=== PATIENT | female | born 1955 | race African-American/Black ===

== ENCOUNTER → 2017-02-02 | Outpatient (CLI) | payer OTHER ==
[~2017-02-02] MED LIST: CODE30TA2 PO; HYDR-3583 PO; LISI10TA PO; WALKER/ADULT/FO1 MIS; XARE10TA PO
== END ==
LOC: CPRE 08:52
PROVIDERS: ATTEND Orthopaedic Surgery Orthopaedic Trauma
DX: M79.609 Pain in unspecified limb (principal)

== ENCOUNTER 2017-02-12 05:22 | Inpatient (IN) | payer OTHER ==
[~2017-02-12] VITALS: Ht 172.7 cm; Wt 84.6 kg
[~2017-02-12 05:22] MED LIST changes: -HYDR-3583 PO; -LISI10TA PO; -WALKER/ADULT/FO1 MIS; -XARE10TA PO
[2017-02-12] MEDS ORDERED: INSULIN HUMAN REGULAR 1,000 UNITS/10 ML VIAL SQ PRN (06:00)
[2017-02-12] MEDS ORDERED: CHLORHEXIDINE GLUCONATE 2 % 1 PACK (2 CLOTHS) TOPICAL PRN (06:00)
[2017-02-12] MEDS ORDERED: METOPROLOL TARTRATE 25 MG TAB PO PRN (06:00)
[2017-02-12] MEDS ORDERED: ceFAZolin 2 GM PREMIX 50 ML IV SCH (06:00)
[2017-02-12] MEDS ORDERED: CHLORHEXIDINE GLUCONATE 4% SOLN 120 ML BTL TOPICAL SCH (06:00)
[2017-02-12] MEDS ORDERED: LACTATED RINGER'S 1000 ML IV PRN (06:00)
[2017-02-12] MEDS ORDERED: POVIDONE IODINE 5% (ANTISEPSIS KIT) 4 APPLICATIONS EACH NARE PRN (06:00)
[2017-02-12] MEDS ORDERED: SODIUM CHLORID 0.9% 500 ML IV PRN (06:00)
[2017-02-12] MEDS ORDERED: VANCOMYCIN 1000 MG/NS 250 ML (for <70 kg) IV SCH ×2 (06:00)
[2017-02-12] MEDS ORDERED: LISI10TA PO (06:03)
[2017-02-12] MEDS ORDERED: GENTAMICIN SULFATE 80 MG/2 ML VIAL ONE (06:22)
[2017-02-12] MEDS ORDERED: FAMOTIDINE 20 MG/2 ML VIAL ONE (06:24)
[2017-02-12] MEDS ORDERED: ACETAMINOPHEN 1000 MG/100 ML 100 ML IV ONE (06:24)
[2017-02-12] MEDS ORDERED: SODIUM CHLORIDE 0.9% IV SCH (07:00)
[2017-02-12] MEDS ORDERED: EXPAREL PERI-ARTICULAR INJECTION (TOTAL VOL. 60 ML) P-ARTICULR SCH ×2 (07:00)
[2017-02-12] MEDS ORDERED: TRANEXAMIC ACID IV SCH (07:00)
[2017-02-12] MEDS ORDERED: XARE10TA PO (07:25)
[2017-02-12] MEDS ORDERED: WALKER/ADULT/FO1 MIS (07:25)
[2017-02-12] MEDS ORDERED: HYDR-3583 PO (07:25)
[2017-02-12] MEDS: LACTATED RINGER'S 1000 ML INJ 1,000 ML IV SCH ×2 (08:48→21:18)
--- NOTE | 2017-02-12 08:52 | PD.OP ---
cc: Alejandro Michael MD Operative Report Date of Surgery: Feb 12, 2017 Preoperative Diagnosis: Severe left hip osteoarthritis Postoperative Diagnosis: Procedure: Left total hip arthroplasty Surgeon: Alejandro Michael Head Setter(s): ROCIO Mae PA-C The surgical procedure was assisted by my physician physician's assistant. My P.A. presence was necessary throughout this case for the manipulation and positioning of the surgical extremity. My P.A. was assisting me throughout the duration of this procedure. The skill set of a physician physician's assistant was medically necessary to complete this procedure. During the surgical case the communication electronic technician was working at the back table and the physician physician's assistant was directly assisting me. Operation and Findings: PLAN OF ACTIVITY Weight bear as tolerated. DRAINS: 7-mm NATHAN drain. IMPLANTS USED DePuy Corail size [15] collared stem with a size [50] [place] Gription cup, [50 /32] Altrx poly liner, and a [32+5] ceramic Biolox ceramic head. DETAILS OF PROCEDURE: This patient has a long history of hip pain. Patient was found to have severe osteoarthritis. The patient had radiographic evidence of joint space narrowing with [id number]-[id number] arthritis and osteophytes around the acetabulum as well as the femoral head. There was also some cystic changes. The patient failed conservative treatment with pain medications, anti-inflammatories, physical therapy, assistive devices including a cane, as well as therapeutic injection of the hip. Patient's hip arthritis was limiting his ability to ambulate and perform activities of daily living. The patient wished to proceed with surgery and informed consent was obtained. Operative site was marked. I discussed both posterior approach and anterior approach with the patient and decision was made for anterior approach. Patient was brought to OR and placed on OR table. IV sedation and general anesthesia was administered by anesthesiologist. Patient positioned on a Nasrin table and was given IV antibiotics. Time-out procedure was performed. The hip and thigh were prepped with alcohol followed by Hibiclens. The thigh was draped in the usual sterile fashion. Clean Air Suite was used for this procedure. The procedure began with a 5-inch incision over the anterolateral thigh. Subcutaneous tissue was dissected with Bovie. The fascia over the tensa fasciae latae was incised. Care was taken to avoid injury to the lateral femoral cutaneous nerve. The tensor muscle was retracted laterally. Sartorius was retracted medially. Retractors were now placed. The reflected head of the rectus is now elevated. A capsulotomy was performed over the anterior head capsule. Sutures were placed to help retract the capsule. At this point the femoral head and neck were identified. With soft tissue protected, oscillating saw was used to make a cut through the femoral neck, the femoral head was now removed. At this point attention was turned to preparation of the acetabulum. The labrum was excised. The acetabulum was sequentially reamed up to size [50]. A [place] cup was now placed. Fluoroscopy was used to aid in identification of appropriate version. Cup was fully impacted and found to have excellent fit. Hole eliminator was now placed. The liner was now impacted into the cup. At this point the hip was externally rotated. A hook was placed around the proximal femur. The capsule was released off the lateral and medial femur. The hip was now extended and adducted. Retractors were placed around the proximal femur to allow for exposure. A box osteotome was used to remove the lateral cortex of the femoral neck. A broach was used to help lateralize the prosthesis. Canal finder was used to create a path down the canal. Next, the canal was sequentially broached up to size [50]. This was found to be an excellent fit. Calcar planer was placed. A standard head was placed, and the hip was reduced. The hip was found to have excellent stability with good range of motion. The leg lengths were measured under fluoroscopy and found to be equal compared to preoperatively. Trial broach was removed. The Corail stem was opened. Stem was fully impacted into the proximal femur in appropriate version. The femoral head was placed. The hip was again reduced. Fluoroscopy confirmed excellent alignment of prosthesis. The wound was thoroughly irrigated and capsule was closed with #1 Vicryl. The fascia over the tensor fasciae muscle was closed with #1 Vicryl, subcutaneous tissue was closed with 3-0 Vicryl and the skin was closed with graham and Dermabond skin closure. The capsule layers, muscle, and subcutaneous tissue were injected with a mixture of saline and bupivicaine. Dressings were applied. The patient was transferred to Recovery Room in stable condition. Alejandro Michael MD Feb 12, 2017 08:52
[2017-02-12] MEDS ORDERED: ONDANSETRON HCL 4 MG/2 ML VIAL IVP PRN (09:00)
[2017-02-12] MEDS: SODIUM CHLORIDE 0.9% FLUSH 5 ML FLUSH IVF SCH ×2 (09:00→21:00)
[2017-02-12] MEDS ORDERED: NALOXONE HCL 0.4 MG/ML AMP IV PRN (09:00)
[2017-02-12] MEDS ORDERED: SODIUM CHLORIDE 0.9% FLUSH 5 ML FLUSH IVF PRN (09:00)
[2017-02-12] MEDS ORDERED: ACETAMINOPHEN/HYDROcodone 325 MG/7.5 MG TAB PO PRN (09:00)
--- NOTE | 2017-02-12 09:16 | RADRPT ---
EXAM DATE/TIME: 02/12/2017 08:27 [facility] COMPARISON: No previous studies available for comparison. INDICATIONS : Post-op total left hip arthroplasty. MEDICAL HISTORY : None. SURGICAL HISTORY : None. ENCOUNTER: Initial ACUITY: 1 day PAIN SCORE: Non-responsive. LOCATION: Left hip. FINDINGS: Left total hip arthroplasty is present. Hardware appears intact. Alignment is anatomic. CONCLUSION: Satisfactory post left JEISON Jose Luis Shafer MD on February 12, 2017 at 9:13 Board Certified Radiologist. This report was verified electronically.
[2017-02-12] MEDS ORDERED: Post-op Orders (for Pharmacy) MISC XX ONE (09:17)
[2017-02-12] MEDS ORDERED: DO NOT ADM ANY ANTICOAGULANT DRUGS PRN (09:17)
[2017-02-12] MEDS ORDERED: *morphine SULFATE 8 MG/ML PERIprocedure ONLY ONE ×3 (09:19→12:39)
[2017-02-12] MEDS ORDERED: *HYDROmorphone PF 1 MG VIAL PERIprocedural Use ONLY ONE ×2 (09:43→10:32)
[2017-02-12] MEDS: KETOROLAC TROMETHAMINE 30 MG/ML (IVP) VIAL IV PUSH SCH ×2 (10:00→22:54)
[2017-02-12] MEDS ORDERED: TRANEXAMIC ACID INJ 1,000 MG in SODIUM CHLORIDE 0.9% INJ 100 ML IV ONE (10:00)
--- NOTE | 2017-02-12 10:18 | RADRPT ---
EXAM DATE/TIME: 02/12/2017 09:30 [facility] COMPARISON: No previous studies available for comparison. INDICATIONS : Post hardware placement left hip MEDICAL HISTORY : Arthritis. SURGICAL HISTORY : ENCOUNTER: Subsequent ACUITY: 1 day PAIN SCORE: Non-responsive. LOCATION: Left Hip FINDINGS: Left total hip arthroplasty is present. Hardware is intact. Alignment is anatomic. The adjacent pelvi s is unremarkable. A surgical drain is noted. Skin graham are present laterally. Contralateral right hip is notable for severe arthritic change. CONCLUSION: Satisfactory postop appearance Jose Luis Shafer MD on February 12, 2017 at 10:15 Board Certified Radiologist. This report was verified electronically.
[2017-02-12] MEDS ORDERED: NEOSTIGMINE 3 MG/3 ML SYR IV ONE (12:00)
[2017-02-12] MEDS ORDERED: ROCURONIUM INJ 50 MG/5 ML SYRINGE IV PUSH ONE (12:00)
[2017-02-12] MEDS ORDERED: LIDOCAINE HCL 1% PF 5 ML AMPULE OTHER ONE (12:00)
[2017-02-12] MEDS ORDERED: ONDANSETRON HCL 4 MG/2 ML VIAL IV PUSH ONE (12:00)
[2017-02-12] MEDS ORDERED: PROPOFOL 200 MG/20 ML AMP IV ONE (12:00)
[2017-02-12] MEDS ORDERED: ESMOLOL HCL 100 MG/10 ML VIAL IV ONE (12:00)
[2017-02-12] MEDS ORDERED: MIDAZOLAM HCL 2 MG/2 ML VIAL IV ONE (12:00)
[2017-02-12] MEDS ORDERED: GLYCOPYRROLATE 1 MG/5 ML SYRINGE IV PUSH ONE (12:00)
[2017-02-12] MEDS ORDERED: DEXAMETHASONE SOD PHOS 4 MG/ML VIAL IV ONE (12:00)
[2017-02-12] MEDS: ceFAZolin 2 GM PREMIX 50 ML IV SCH ×2 (12:48→18:51)
[2017-02-12 17:05] VITALS: BP 125/71; PULSE 63; RESP 17; TEMP 96.8; O2SAT 100
[2017-02-12] MEDS: VANCOMYCIN INJ 1,000 MG in SODIUM CHLOR 0.9% 250 ML INJ 250 ML IV SCH (17:32)
[2017-02-12] MEDS: MORPHINE SULFATE 4 MG/ML INJ IV PUSH PRN (17:33)
[2017-02-12 17:57] VITALS: O2SAT 100
[2017-02-12 19:00] VITALS: BP 128/72; PULSE 67; RESP 17; TEMP 98.2; O2SAT 100
[2017-02-13] VITALS (8 sets, daily range): BP systolic 101–145; BP diastolic 55–85; PULSE 64–86; RESP 15–18; TEMP 96.4–98; O2SAT 96–100
[2017-02-13] MEDS: ceFAZolin 2 GM PREMIX 50 ML IV SCH (01:55)
[2017-02-13] MEDS: ACETAMINOPHEN/HYDROcodone 325 MG/10 MG TAB PO PRN ×5 (04:09→20:25)
[2017-02-13] MEDS: MORPHINE SULFATE 4 MG/ML INJ IV PUSH PRN ×3 (04:29→22:02)
[2017-02-13 05:50] LABS: HEMATOCRIT 30.8 % (35.0-46.0)
[2017-02-13] MEDS: VANCOMYCIN INJ 1,000 MG in SODIUM CHLOR 0.9% 250 ML INJ 250 ML IV SCH (05:51)
[2017-02-13 05:58] LABS: REVIEW FLAG FINAL
--- NOTE | 2017-02-13 06:45 | PD.ORT.PN ---
Subjective Subjective Remarks Resting with pain controlled. Was able to walk with assistance to bathroom back Objective Vitals Vital Signs Date Time Temp Pulse Resp B/P (MAP) Pulse Ox O2 Delivery O2 Flow Rate FiO2 02/13/17 04:00 97.4 70 17 143/76 (98) 100 02/13/17 00:00 97.6 69 15 101/56 (71) 98 02/12/17 19:00 98.2 67 17 128/72 (90) 100 02/12/17 17:57 100 Nasal Cannula 2.00 02/12/17 17:05 96.8 63 17 125/71 (89) 100 02/12/17 16:00 62 18 109/60 (76) 99 Room Air 02/12/17 14:00 59 19 112/65 (81) 96 Room Air 02/12/17 13:00 73 18 135/87 (103) 100 Room Air 02/12/17 12:00 98.0 70 13 129/60 (83) 99 Room Air 02/12/17 11:00 89 14 144/69 (94) 99 Room Air 02/12/17 11:00 14 02/12/17 10:30 68 13 146/68 (94) 98 Room Air 02/12/17 10:15 62 15 148/75 (99) 100 Room Air 02/12/17 10:00 62 20 124/67 (86) 100 Nasal Cannula 2 02/12/17 09:45 68 20 146/68 (94) 100 Nasal Cannula 2 02/12/17 09:30 68 23 128/60 (82) 100 Nasal Cannula 4 02/12/17 09:15 97.6 63 19 119/67 (84) 100 Nasal Cannula 4 I/O 02/12/17 02/12/17 02/12/17 02/13/17 02/13/17 02/13/17 07:00 15:00 23:00 07:00 15:00 23:00 Intake Total 1814 ml 730 ml 480 ml Output Total 715 ml Balance 1099 ml 730 ml 480 ml Intake Oral 480 ml 480 ml IV Total 414 ml 250 ml Other 1400 ml Output Urine Total 175 ml Drainage Total 140 ml Estimated Blood Loss 400 ml # Voids 1 3 3 # Bowel Movements 0 0 Result Diagram: 02/13/17 0516 Imaging Last 24 hours Impressions Hip and Pelvis X-Ray 02/12/17 0848 Signed Impressions: Service Date/Time: February 09:30 - CONCLUSION: Satisfactory postop appearance Jose Luis Shafer MD Objective Remarks Left lower extremity: Dressing with mild drainage from drain site. Incision dressing clean and dry. Mild swelling. Distally intact sensation with good capillary refills. Strong dorsiflexion and plantar flexion of foot. Assessment & Plan Assessment and Plan Left total hip arthroplasty due to avascular necrosis POD 1 Physical therapy weightbearing as tolerated twice a day Remove drain today after physical therapy and he daily dressing changes with dry dressings over incision and Xeroform over drain site. Do not use Steri- Strip over drain site Lovenox then convert to Xarelto after discharge Incentive spirometry Case management for rehabilitation placement on Thursday Follow-up appointment with Dr. Michael or PA in 2 weeks Adalid Light Jr. Feb 13, 2017 06:45
[2017-02-13] MEDS: ENOXAPARIN SODIUM 40 MG/0.4 ML SYRINGE SQ SCH (08:55)
[2017-02-13] MEDS: KETOROLAC TROMETHAMINE 30 MG/ML (IVP) VIAL IV PUSH SCH ×2 (09:44→20:26)
[2017-02-13] MEDS: SODIUM CHLORIDE 0.9% FLUSH 5 ML FLUSH IVF SCH ×2 (09:45→20:25)
[2017-02-13] MEDS: LACTATED RINGER'S 1000 ML INJ 1,000 ML IV SCH ×2 (09:45→20:26)
[2017-02-13] MEDS: DOCUSATE SODIUM 100 MG CAP PO SCH (20:24)
[2017-02-14] MEDS: ACETAMINOPHEN/HYDROcodone 325 MG/10 MG TAB PO PRN ×5 (05:36→23:28)
--- NOTE | 2017-02-14 06:51 | PD.ORT.PN ---
Subjective Subjective Remarks POd 2 s/p left anterior JEISON doing well. reports mild pain but out of bed with therapy. Objective Vitals Vital Signs Date Time Temp Pulse Resp B/P (MAP) Pulse Ox O2 Delivery O2 Flow Rate FiO2 02/13/17 23:32 98.0 70 17 106/61 (76) 96 02/13/17 19:20 96.4 86 18 145/85 (105) 99 02/13/17 16:00 97.2 70 18 102/63 (76) 100 02/13/17 12:00 97.8 66 18 108/61 (77) 96 02/13/17 10:22 96 Nasal Cannula 2.00 02/13/17 08:00 97.8 64 18 102/55 (71) 96 I/O 02/13/17 02/13/17 02/13/17 02/14/17 02/14/17 02/14/17 07:00 15:00 23:00 07:00 15:00 23:00 Intake Total 480 ml 970 ml 480 ml 720 ml Output Total 80 ml Balance 400 ml 970 ml 480 ml 720 ml Intake Oral 480 ml 720 ml 480 ml 720 ml IV Total 250 ml Drainage Total 80 ml # Voids 3 2 4 1 # Bowel Movements 0 0 1 0 Result Diagram: 02/13/17 0516 Imaging Last 24 hours Impressions Hip and Pelvis X-Ray 02/12/17 0848 Signed Impressions: Service Date/Time: February 09:30 - CONCLUSION: Satisfactory postop appearance Jose Luis Shafer MD Objective Remarks Left lower extremity: Dressing with mild drainage from drain site. Incision dressing clean and dry. Mild swelling. Distally intact sensation with good capillary refills. Strong dorsiflexion and plantar flexion of foot. Assessment & Plan Assessment and Plan 1) Left total hip arthroplasty due to avascular necrosis POD 2 Physical therapy weightbearing as tolerated twice a day Remove drain today after physical therapy and he daily dressing changes with dry dressings over incision and Xeroform over drain site. Do not use Steri- Strip over drain site Lovenox then convert to Xarelto after discharge Incentive spirometry Case management for rehabilitation placement on Thursday Follow-up appointment with Dr. Michael or PA in 2 weeks Armando Sampson Feb 14, 2017 06:50
[2017-02-14 08:00] VITALS: BP 137/69; PULSE 79; RESP 18; TEMP 97.9; O2SAT 100
[2017-02-14] MEDS: ENOXAPARIN SODIUM 40 MG/0.4 ML SYRINGE SQ SCH (08:55)
[2017-02-14] MEDS: DOCUSATE SODIUM 100 MG CAP PO SCH ×2 (08:55→19:53)
[2017-02-14] MEDS: SODIUM CHLORIDE 0.9% FLUSH 5 ML FLUSH IVF SCH ×2 (08:59→19:54)
[2017-02-14 09:49] VITALS: O2SAT 96
[2017-02-14] MEDS: LACTATED RINGER'S 1000 ML INJ 1,000 ML IV SCH ×2 (10:48→19:54)
[2017-02-14 12:00] VITALS: BP 112/74; PULSE 76; RESP 18; TEMP 97.9; O2SAT 100
[2017-02-14] MEDS: MORPHINE SULFATE 4 MG/ML INJ IV PUSH PRN ×2 (12:03→18:12)
[2017-02-14 16:00] VITALS: BP 136/81; PULSE 84; RESP 18; TEMP 98.9; O2SAT 95
[2017-02-14 20:15] VITALS: BP 105/67; PULSE 76; RESP 16; TEMP 99; O2SAT 97
[2017-02-14 23:25] VITALS: BP 140/71; PULSE 91; RESP 16; TEMP 98.1; O2SAT 99
[2017-02-15] MEDS: ACETAMINOPHEN/HYDROcodone 325 MG/10 MG TAB PO PRN ×4 (03:47→13:04)
[2017-02-15 04:35] VITALS: BP 127/74; PULSE 72; RESP 16; TEMP 97.2; O2SAT 100
--- NOTE | 2017-02-15 06:47 | PD.ORT.PN ---
Subjective Subjective Remarks POD 3 s/p left anterior JEISON doing well. reports mild pain but out of bed with therapy. improving Objective Vitals Vital Signs Date Time Temp Pulse Resp B/P (MAP) Pulse Ox O2 Delivery O2 Flow Rate FiO2 02/15/17 04:35 97.2 72 16 127/74 (91) 100 02/14/17 23:25 98.1 91 16 140/71 (94) 99 02/14/17 20:59 18 02/14/17 20:15 99.0 76 16 105/67 (80) 97 02/14/17 16:00 98.9 84 18 136/81 (99) 95 02/14/17 12:00 97.9 76 18 112/74 (87) 100 02/14/17 09:49 96 Nasal Cannula 2.00 02/14/17 08:00 97.9 79 18 137/69 (91) 100 I/O 02/14/17 02/14/17 02/14/17 02/15/17 02/15/17 02/15/17 07:00 15:00 23:00 07:00 15:00 23:00 Intake Total 720 ml 800 ml 720 ml 240 ml Balance 720 ml 800 ml 720 ml 240 ml Intake Oral 720 ml 800 ml 720 ml 240 ml # Voids 1 2 4 3 # Bowel Movements 0 0 1 0 Result Diagram: 02/13/17 0516 Imaging Last 24 hours Impressions Hip and Pelvis X-Ray 02/12/17 0848 Signed Impressions: Service Date/Time: February 09:30 - CONCLUSION: Satisfactory postop appearance Jose Luis Shafer MD Objective Remarks Left lower extremity: Dressing with mild drainage from drain site. Incision dressing clean and dry. Mild swelling. Distally intact sensation with good capillary refills. Strong dorsiflexion and plantar flexion of foot. Assessment & Plan Assessment and Plan 1) Left total hip arthroplasty due to avascular necrosis POD 3 Physical therapy weightbearing as tolerated twice a day Remove drain today after physical therapy and he daily dressing changes with dry dressings over incision and Xeroform over drain site. Do not use Steri- Strip over drain site Lovenox then convert to Xarelto after discharge Incentive spirometry Case management for rehabilitation placement on Thursday Follow-up appointment with Dr. Michael or PA in 2 weeks Armando Sampson Feb 15, 2017 06:47
--- NOTE | 2017-02-15 06:49 | HHI.DS ---
Discharge Summary Admission Date Feb 12, 2017 at 05:22 Discharge Date: Feb 15, 2017 Admitting Diagnosis Left hip osteoarthritis Diagnosis: (1) S/P total hip arthroplasty Diagnosis: Principal ICD Codes: Z96.649 - Presence of unspecified artificial hip joint Procedures Left anterior total hip arthroplasty CBC/BMP: 02/13/17 0516 Significant Findings Laboratory Tests Test 02/13/17 05:16 Hemoglobin 10.7 GM/DL (11.6-15.3) Hematocrit 30.8 % (35.0-46.0) PE at Discharge Left lower extremity: Dressing with mild drainage from drain site. Incision dressing clean and dry. Mild swelling. Distally intact sensation with good capillary refills. Strong dorsiflexion and plantar flexion of foot. Hospital Course Patient admitted from outpatient basis for elective left total hip arthroplasty. She tolerated the procedure well. She was admitted to [address] [place] [address]. She was out of bed on postoperative day 0. Her drain was discontinued on postop day 1 and daily dressing changes were initiated. She lives alone and is not fit for discharge home by herself. She will be set up for discharge to rehabilitation facility. By postoperative day 3 she was ambulatory with therapy , pain well controlled, hemodynamically stable, and fit for discharge to rehabilitation facility. She'll be discharged today in follow-up in the office Dr. Bhakta or his PA in 2 weeks. She'll remain fully weightbearing and have daily dressing changes of the incision. Pt Condition on Discharge: Good Discharge Disposition: Discharge to SNF Discharge Instructions Diet Instructions: As Tolerated, No Restrictions Activities You Can Perform: Full Weight Bearing Activities to Avoid: Shower Follow up Referrals: Orthopedics - 2 Weeks @ [facility] with Alejandro Bhakta MD New Medications: Hydrocodone-Acetaminophen (Hydrocodone-Acetaminophen) 10-325 mg Tab 1 TAB PO Q4H PRN for PAIN, #60 TAB 0 Refills Rivaroxaban (Xarelto) 10 Mg Tab 10 MG PO DAILY for Blood Clot Prevention, #14 TAB 0 Refills Walker/Adult/Folding (Walker/Adult/Folding) 1 Mis Mis EA .ROUTE DIRECTED, #1 0 Refills Continued Medications: Lisinopril-Hctz (Lisinopril-Hctz) 10-12.5 Mg Tab 1 TAB PO DAILY for Blood Pressure Management, #30 TAB 0 Refills Discontinued Medications: Codeine-Acetaminophen (Codeine-Acetaminophen) 30-300 mg Tab 1 TAB PO Q4H PRN for PAIN, TAB 0 Refills Armando Sampson Feb 15, 2017 06:49
[2017-02-15 07:33] VITALS: BP 143/86; PULSE 74; RESP 16; TEMP 98.2; O2SAT 98
[2017-02-15] MEDS: SODIUM CHLORIDE 0.9% FLUSH 5 ML FLUSH IVF SCH (09:00)
[2017-02-15] MEDS: ENOXAPARIN SODIUM 40 MG/0.4 ML SYRINGE SQ SCH (09:13)
[2017-02-15] MEDS: DOCUSATE SODIUM 100 MG CAP PO SCH (09:13)
[2017-02-15] MEDS: LACTATED RINGER'S 1000 ML INJ 1,000 ML IV SCH (11:48)
[2017-02-15 11:57] VITALS: BP 122/74; PULSE 72; RESP 16; TEMP 98.2; O2SAT 100
[2017-02-15 15:34] VITALS: BP 116/69; PULSE 77; RESP 16; TEMP 98.3; O2SAT 100
== END 2017-02-15 18:48 | DRG 470 ==
LOC: HSDI 05:22 → N06B 16:28
PROVIDERS: ADMIT Orthopaedic Surgery Orthopaedic Trauma; ATTEND Orthopaedic Surgery Orthopaedic Trauma
PROC: 0SRB04Z Replacement of Left Hip Joint with Ceramic on Polyethylene Synthetic Substitute, Open Approach (ICD-10-PCS; principal; 2017-02-12 06:40)
DX: M16.12 Unilateral primary osteoarthritis, left hip (principal); M87.852 Other osteonecrosis, left femur; I10 Essential (primary) hypertension; M25.752 Osteophyte, left hip
CPT/HCPCS: 73501; 73502; 76000; 85014; 85018; 86850; 86900; 86901; C1776; C9290; J0131; J0690; J1100; J1170; J1580; J1650; J1885; J2250; J2270; J2405; J2710; J3010; J3370; J7050; J7120

== ENCOUNTER 2017-06-11 07:00 | Inpatient (IN) | payer OTHER ==
[~2017-06-11] VITALS: Ht 172.7 cm; Wt 85.6 kg
[~2017-06-11 07:00] MED LIST changes: -CODE30TA2 PO; +HYDR-3583 PO; +LISI10TA PO; +WALKER/ADULT/FO1 MIS
[2017-07-14] MEDS ORDERED: SODIUM CHLORID 0.9% 500 ML IV PRN (06:00)
[2017-07-14] MEDS ORDERED: POVIDONE IODINE 5% (ANTISEPSIS KIT) 4 APPLICATIONS EACH NARE PRN (06:00)
[2017-07-14] MEDS ORDERED: CELECOXIB 200 MG CAP PO ONE (06:00)
[2017-07-14] MEDS ORDERED: METOPROLOL TARTRATE 25 MG TAB PO PRN (06:00)
[2017-07-14] MEDS ORDERED: LACTATED RINGER'S 1000 ML IV PRN (06:00)
[2017-07-14] MEDS ORDERED: CHLORHEXIDINE GLUCONATE 4% SOLN 120 ML BTL TOPICAL SCH (06:00)
[2017-07-14] MEDS ORDERED: CHLORHEXIDINE GLUCONATE 2 % 1 PACK (2 CLOTHS) TOPICAL PRN (06:00)
[2017-07-14] MEDS ORDERED: ceFAZolin 2 GM PREMIX 50 ML IV SCH (06:00)
[2017-07-14] MEDS ORDERED: VANCOMYCIN 1000 MG/NS 250 ML (for <70 kg) IV SCH ×2 (06:00)
[2017-07-14] MEDS ORDERED: DEXAMETHASONE SOD PHOS 20 MG/5 ML VIAL IV ONE (06:00)
[2017-07-14] MEDS ORDERED: GENTAMICIN SULFATE 80 MG/2 ML VIAL ONE ×2 (06:04→06:15)
[2017-07-14] MEDS ORDERED: BUPIVACAINE/EPINEPHRINE 0.25% 50 ML VIAL ONE (06:04)
[2017-07-14] MEDS ORDERED: TRANEXAMIC ACID IV SCH (07:00)
[2017-07-14] MEDS ORDERED: EXPAREL PERI-ARTICULAR INJECTION (TOTAL VOL. 60 ML) P-ARTICULR SCH ×2 (07:00)
[2017-07-14] MEDS ORDERED: SODIUM CHLORIDE 0.9% IV SCH (07:00)
[2017-07-14] MEDS ORDERED: ACETAMINOPHEN 1000 MG/100 ML 100 ML IV ONE (07:51)
[2017-07-14] MEDS ORDERED: HYDROmorphone HCL PF 2 MG/ML VIAL ONE ×4 (07:52→10:16)
[2017-07-14] MEDS ORDERED: ASPI1CHW4 CHEW (08:25)
[2017-07-14] MEDS ORDERED: HYDR-3583 PO (08:25)
--- NOTE | 2017-07-14 08:40 | PD.OP ---
cc: Alejandro Michael MD Operative Report Date of Surgery: Jul 14, 2017 Preoperative Diagnosis: Severe right hip osteoarthritis Postoperative Diagnosis: Procedure: Right total hip arthroplasty via anterior approach Anesthesia: Gen. Surgeon: Alejandro Michael Compound Specialist(s): ROCIO Mae PA-C The surgical procedure was assisted by my physician instructional assistant. My P.A. presence was necessary throughout this case for the manipulation and positioning of the surgical extremity. My P.A. was assisting me throughout the duration of this procedure. The skill set of a physician instructional assistant was medically necessary to complete this procedure. During the surgical case the surgical garment fitter was working at the back table and the physician instructional assistant was directly assisting me. Operation and Findings: PLAN OF ACTIVITY Weight bear as tolerated. DRAINS: 7-mm NATHAN drain. IMPLANTS USED DePuy Corail size [14] collared stem with a size [52] [place] Gription cup, [52 /32] Altrx poly liner, and a [36+1] ceramic Biolox ceramic head. DETAILS OF PROCEDURE: This patient has a long history of hip pain. Patient was found to have severe osteoarthritis. The patient had radiographic evidence of joint space narrowing with qvef-wk-grok arthritis and osteophytes around the acetabulum as well as the femoral head. There was also some cystic changes. The patient failed conservative treatment with pain medications, anti-inflammatories, physical therapy, assistive devices including a cane, as well as therapeutic injection of the hip. Patient's hip arthritis was limiting his ability to ambulate and perform activities of daily living. The patient wished to proceed with surgery and informed consent was obtained. Operative site was marked. I discussed both posterior approach and anterior approach with the patient and decision was made for anterior approach. Patient was brought to OR and placed on OR table. IV sedation and general anesthesia was administered by anesthesiologist. Patient positioned on a Nasrin table and was given IV antibiotics. Time-out procedure was performed. The hip and thigh were prepped with alcohol followed by Hibiclens. The thigh was draped in the usual sterile fashion. Clean Air Suite was used for this procedure. The procedure began with a 5-inch incision over the anterolateral thigh. Subcutaneous tissue was dissected with Bovie. The fascia over the tensa fasciae latae was incised. Care was taken to avoid injury to the lateral femoral cutaneous nerve. The tensor muscle was retracted laterally. Sartorius was retracted medially. Retractors were now placed. The reflected head of the rectus is now elevated. A capsulotomy was performed over the anterior head capsule. Sutures were placed to help retract the capsule. At this point the femoral head and neck were identified. With soft tissue protected, oscillating saw was used to make a cut through the femoral neck, the femoral head was now removed. At this point attention was turned to preparation of the acetabulum. The labrum was excised. The acetabulum was sequentially reamed up to size [52]. A [place] cup was now placed. Fluoroscopy was used to aid in identification of appropriate version. Cup was fully impacted and found to have excellent fit. Hole eliminator was now placed. The liner was now impacted into the cup. At this point the hip was externally rotated. A hook was placed around the proximal femur. The capsule was released off the lateral and medial femur. The hip was now extended and adducted. Retractors were placed around the proximal femur to allow for exposure. A box osteotome was used to remove the lateral cortex of the femoral neck. A broach was used to help lateralize the prosthesis. Canal finder was used to create a path down the canal. Next, the canal was sequentially broached up to size [14]. This was found to be an excellent fit. Calcar planer was placed. A standard head was placed, and the hip was reduced. The hip was found to have excellent stability with good range of motion. The leg lengths were measured under fluoroscopy and found to be equal compared to preoperatively. Trial broach was removed. The [place]ail stem was opened. Stem was fully impacted into the proximal femur in appropriate version. The femoral head was placed. The hip was again reduced. Fluoroscopy confirmed excellent alignment of prosthesis. The wound was thoroughly irrigated and capsule was closed with #1 Vicryl. The fascia over the tensor fasciae muscle was closed with #1 Vicryl, subcutaneous tissue was closed with 3-0 Vicryl and the skin was closed with graham and Dermabond skin closure. The capsule layers, muscle, and subcutaneous tissue were injected with a mixture of saline and bupivicaine. Dressings were applied. The patient was transferred to Recovery Room in stable condition. Alejandro Michael MD Jul 14, 2017 08:40
[2017-07-14] MEDS ORDERED: Post-op Orders (for Pharmacy) XX ONE (08:45)
[2017-07-14] MEDS ORDERED: ACETAMINOPHEN/HYDROcodone 325 MG/7.5 MG TAB PO PRN (08:45)
[2017-07-14] MEDS ORDERED: ONDANSETRON HCL 4 MG/2 ML VIAL IVP PRN (08:45)
[2017-07-14] MEDS ORDERED: NALOXONE HCL 0.4 MG/ML AMP IV PUSH PRN (08:45)
[2017-07-14] MEDS ORDERED: *morphine SULFATE 8 MG/ML PERIprocedure ONLY ONE ×2 (09:10→09:21)
[2017-07-14] MEDS ORDERED: DO NOT ADM ANY ANTICOAGULANT DRUGS PRN (09:30)
[2017-07-14] MEDS: LACTATED RINGER'S 1000 ML INJ 1,000 ML IV SCH (09:30)
[2017-07-14] MEDS ORDERED: TRANEXAMIC ACID INJ 1,000 MG in SODIUM CHLORIDE 0.9% INJ 100 ML IV ONE (10:20)
--- NOTE | 2017-07-14 10:31 | RADRPT ---
EXAM DATE/TIME: 07/14/2017 09:16 [facility] COMPARISON: No previous studies available for comparison. INDICATIONS : Post-op right total hip replacement. MEDICAL HISTORY : Arthritis. SURGICAL HISTORY : Left total hip replacement. ENCOUNTER: Initial ACUITY: 1 day PAIN SCORE: Non-responsive. LOCATION: Right hip FINDINGS: Post surgical features of right hip arthroplasty. Arthroplasty components are in good position and in anatomic alignment. No significant acute bony fracture. Immediate postsurgical features in the right hip soft tissues. There is a left hip arthroplasty also in place. CONCLUSION: 1. Status post right hip arthroplasty in anatomic alignment without acute fracture. Osvaldo Reilly MD on July 14, 2017 at 10:29 Board Certified Radiologist. This report was verified electronically.
[2017-07-14] MEDS: KETOROLAC TROMETHAMINE 30 MG/ML (IVP) VIAL IV PUSH SCH ×2 (11:00→23:09)
[2017-07-14] MEDS: ASPIRIN 81 MG CHEW TAB CHEW SCH ×2 (11:16→19:58)
[2017-07-14] MEDS ORDERED: ONDANSETRON HCL 4 MG/2 ML VIAL IV PUSH ONE (12:00)
[2017-07-14] MEDS ORDERED: ROCURONIUM INJ 50 MG/5 ML SYRINGE IV PUSH ONE (12:00)
[2017-07-14] MEDS ORDERED: PROPOFOL 200 MG/20 ML AMP IV ONE (12:00)
[2017-07-14] MEDS ORDERED: NEOSTIGMINE 5 MG/5 ML SYRINGE IV PUSH ONE (12:00)
[2017-07-14] MEDS ORDERED: PHENYLEPH/NS 1000 MCG/10 ML SYR IV ONE (12:00)
[2017-07-14] MEDS ORDERED: VECURONIUM BROMIDE 20 MG VIAL IV ONE (12:00)
[2017-07-14] MEDS ORDERED: GLYCOPYRROLATE 1 MG/5 ML SYRINGE IV PUSH ONE (12:00)
[2017-07-14] MEDS ORDERED: LIDOCAINE HCL 1% PF 5 ML SYRINGE OTHER ONE (12:00)
[2017-07-14] MEDS ORDERED: STERILE WATER FOR INJECTION 20 ML VIAL IV ONE (12:00)
[2017-07-14] MEDS ORDERED: LABETALOL HCL 100 MG/20 ML VIAL IV ONE (12:00)
[2017-07-14 12:30] VITALS: BP 111/60; PULSE 50; RESP 17; TEMP 95.7; O2SAT 97
[2017-07-14] MEDS: MORPHINE SULFATE 4 MG/ML INJ IV PUSH PRN ×2 (12:36→21:13)
[2017-07-14] MEDS: ACETAMINOPHEN/HYDROcodone 325 MG/10 MG TAB PO PRN ×3 (12:37→23:14)
[2017-07-14] MEDS: ceFAZolin 2 GM PREMIX 50 ML IV SCH ×2 (12:45→19:00)
--- NOTE | 2017-07-14 13:02 | RADRPT ---
EXAM DATE/TIME: 07/14/2017 07:12 [facility] COMPARISON: No previous studies available for comparison. INDICATIONS : Right total hip replacement. MEDICAL HISTORY : None. SURGICAL HISTORY : Left total hip replacement. ENCOUNTER: Initial ACUITY: 1 day PAIN SCORE: Non-responsive. LOCATION: Right Hip FINDINGS: Patient is status post placement of a right hip prosthesis. There is good position and alignment of t he prosthesis and bony structures. The bony structures are grossly intact. Postsurgical changes are p resent. CONCLUSION: Good position and alignment on this postoperative examination. Ronald Rain MD on July 14, 2017 at 13:01 Board Certified Radiologist. This report was verified electronically.
[2017-07-14 16:00] VITALS: BP 100/56; PULSE 56; RESP 17; TEMP 96.1; O2SAT 100
[2017-07-14] MEDS: VANCOMYCIN INJ 1,000 MG in SODIUM CHLOR 0.9% 250 ML INJ 250 ML IV SCH (17:33)
[2017-07-14] MEDS: ACETAMINOPHEN 1000 MG/100 ML 100 ML IV SCH (19:57)
[2017-07-14] MEDS: CELECOXIB 200 MG CAP PO SCH (19:58)
[2017-07-14 20:23] VITALS: O2SAT 99
[2017-07-14 21:35] VITALS: BP 105/60; PULSE 60; RESP 17; TEMP 97.4; O2SAT 100
[2017-07-14 23:55] VITALS: BP 90/55; PULSE 57; RESP 17; TEMP 96.7; O2SAT 98
[2017-07-15] MEDS: ceFAZolin 2 GM PREMIX 50 ML IV SCH (00:43)
[2017-07-15] MEDS: LACTATED RINGER'S 1000 ML INJ 1,000 ML IV SCH ×3 (00:43→20:52)
[2017-07-15] MEDS: ACETAMINOPHEN/HYDROcodone 325 MG/10 MG TAB PO PRN ×4 (04:00→22:02)
[2017-07-15 04:45] VITALS: BP 115/55; PULSE 62; RESP 18; TEMP 96.6; O2SAT 100
[2017-07-15] MEDS: MORPHINE SULFATE 4 MG/ML INJ IV PUSH PRN ×4 (05:48→20:53)
[2017-07-15] MEDS: VANCOMYCIN INJ 1,000 MG in SODIUM CHLOR 0.9% 250 ML INJ 250 ML IV SCH (05:48)
--- NOTE | 2017-07-15 06:50 | PD.ORT.PN ---
Subjective Subjective Remarks POD 1 s/p Right anterior JEISON doing well. pain controlled. states out of bed to bathroom Objective Vitals Vital Signs Date Time Temp Pulse Resp B/P (MAP) Pulse Ox O2 Delivery O2 Flow Rate FiO2 07/15/17 04:45 96.6 62 18 115/55 (75) 100 07/14/17 23:55 96.7 57 17 90/55 (67) 98 07/14/17 21:35 97.4 60 17 105/60 (75) 100 07/14/17 20:27 18 07/14/17 20:23 99 21 07/14/17 16:00 96.1 56 17 100/56 (71) 100 07/14/17 12:30 95.7 50 17 111/60 (77) 97 07/14/17 12:00 97.9 50 16 115/61 (79) 100 Nasal Cannula 2 07/14/17 11:30 60 16 105/62 (76) 100 Nasal Cannula 2 07/14/17 11:00 69 16 98/59 (72) 100 Nasal Cannula 2 07/14/17 10:30 49 17 104/61 (75) 100 Nasal Cannula 2 07/14/17 10:15 53 17 101/59 (73) 100 Nasal Cannula 3 07/14/17 10:00 52 16 125/69 (87) 100 Nasal Cannula 3 07/14/17 09:45 51 16 117/69 (85) 100 Nasal Cannula 3 07/14/17 09:30 63 17 107/73 (84) 100 Nasal Cannula 3 07/14/17 09:15 61 16 94/67 (76) 100 Nasal Cannula 3 07/14/17 09:00 97.6 70 16 124/60 (81) 100 Simple Mask 6 I/O 07/14/17 07/14/17 07/14/17 07/15/17 07/15/17 07/15/17 07:00 15:00 23:00 07:00 15:00 23:00 Intake Total 1610 ml 100 ml 3418 ml Output Total 3550 ml Balance -1940 ml 100 ml 3418 ml Intake Oral 720 ml IV Total 1610 ml 100 ml 2698 ml Output Estimated Blood Loss 550 ml Other 3000 ml # Voids 2 # Bowel Movements 0 Imaging Last 24 hours Impressions Hip and Pelvis X-Ray 07/14/17 0836 Signed Impressions: Service Date/Time: Friday, July 14, 2017 09:16 - CONCLUSION: 1. Status post right hip arthroplasty in anatomic alignment without acute fracture. Osvaldo Reilly MD Objective Remarks RLE: dressing clean and dry. intact. NVI Assessment & Plan Assessment and Plan 1) right Anterior JEISON - POD 1 -WBAT -work with therapy -no help at home so plan for DC to SNF -cleared for DC to SNf when CM can arrange -scripts on chart -f/u with Livia or PA in 2 weeks Armando Sampson/Academic Support Director PA Jul 15, 2017 06:50
[2017-07-15] MEDS ORDERED: ACETAMINOPHEN/HYDROcodone 325 MG/10 MG TAB PO PRN (07:00)
[2017-07-15 08:00] VITALS: BP 108/61; PULSE 67; RESP 18; TEMP 97; O2SAT 100
[2017-07-15] MEDS ORDERED: NON-FORMULARY DRUG (Lisinopril-Hctz 1 TAB) PO SCH (09:00)
[2017-07-15] MEDS ORDERED: ASPIRIN 81 MG CHEW TAB CHEW SCH (09:00)
[2017-07-15 09:21] LABS: HEMATOCRIT 31.9 % (35.0-46.0); HEMOGLOBIN 11.1 GM/DL (11.6-15.3)
[2017-07-15] MEDS: LISINOPRIL 10 MG TAB PO SCH (11:13)
[2017-07-15] MEDS: ACETAMINOPHEN 1000 MG/100 ML 100 ML IV SCH ×2 (11:13→20:51)
[2017-07-15] MEDS: HYDROCHLOROTHIAZIDE 25 MG TAB PO SCH (11:15)
[2017-07-15] MEDS: CELECOXIB 200 MG CAP PO SCH ×2 (11:15→20:52)
[2017-07-15] MEDS: ASPIRIN 81 MG CHEW TAB CHEW SCH ×2 (11:18→22:08)
[2017-07-15 12:00] VITALS: BP 116/66; PULSE 67; RESP 18; TEMP 97.8; O2SAT 100
[2017-07-15 16:00] VITALS: BP 112/58; PULSE 61; RESP 18; TEMP 98.2; O2SAT 99
[2017-07-15 20:00] VITALS: BP 131/78; PULSE 82; RESP 16; TEMP 99; O2SAT 100
[2017-07-15] MEDS: DOCUSATE SODIUM 100 MG CAP PO SCH (20:52)
[2017-07-16] VITALS (7 sets, daily range): BP systolic 101–122; BP diastolic 54–78; PULSE 68–79; RESP 15–18; TEMP 96.7–99.3; O2SAT 97–100
[2017-07-16] MEDS: MORPHINE SULFATE 4 MG/ML INJ IV PUSH PRN (02:58)
[2017-07-16] MEDS: DOCUSATE SODIUM 100 MG CAP PO SCH ×2 (07:27→20:28)
[2017-07-16] MEDS: ACETAMINOPHEN 1000 MG/100 ML 100 ML IV SCH (07:27)
[2017-07-16] MEDS: ACETAMINOPHEN/HYDROcodone 325 MG/5 MG TAB PO PRN ×3 (07:27→13:41)
[2017-07-16] MEDS: LISINOPRIL 10 MG TAB PO SCH (07:28)
[2017-07-16] MEDS: ASPIRIN 81 MG CHEW TAB CHEW SCH ×2 (07:28→20:28)
[2017-07-16] MEDS: HYDROCHLOROTHIAZIDE 25 MG TAB PO SCH (07:28)
[2017-07-16] MEDS: CELECOXIB 200 MG CAP PO SCH ×2 (07:28→20:28)
--- NOTE | 2017-07-16 07:46 | PD.ORT.PN ---
Subjective Subjective Remarks Progressing well with physical therapy Objective Vitals Vital Signs Date Time Temp Pulse Resp B/P (MAP) Pulse Ox O2 Delivery O2 Flow Rate FiO2 07/16/17 00:16 99 07/16/17 00:00 68 15 101/54 (70) 98 07/15/17 20:00 99.0 82 16 131/78 (95) 100 07/15/17 16:00 98.2 61 18 112/58 (76) 99 07/15/17 12:00 97.8 67 18 116/66 (83) 100 07/15/17 08:00 97.0 67 18 108/61 (77) 100 I/O 07/15/17 07/15/17 07/15/17 07/16/17 07/16/17 07/16/17 07:00 15:00 23:00 07:00 15:00 23:00 Intake Total 3418 ml 720 ml 1700 ml 2177 ml Output Total 320 ml Balance 3418 ml 720 ml 1700 ml 1857 ml Intake Oral 720 ml 720 ml 1600 ml 380 ml IV Total 2698 ml 100 ml 1797 ml Output Urine Total 320 ml # Voids 2 3 1 # Bowel Movements 0 0 0 Result Diagram: 07/15/17 0905 Imaging Last 24 hours Impressions Hip and Pelvis X-Ray 07/14/17 0836 Signed Impressions: Service Date/Time: Friday, July 14, 2017 09:16 - CONCLUSION: 1. Status post right hip arthroplasty in anatomic alignment without acute fracture. Osvaldo Reilly MD Objective Remarks RLE: dressing clean and dry. intact. NVI Assessment & Plan Assessment and Plan 1) right Anterior JEISON - POD 2 -WBAT -work with therapy -Maintain dressing for 5 days then discontinue dressing preserving surgical tape over incision and dressed with Primapore -no help at home so plan for DC to SNF -cleared for DC to SNf when that is available -scripts on chart -f/u with Livia or [facility] in 2 weeks Adalid Ligth Jr. Jul 16, 2017 07:46
[2017-07-16] MEDS: LACTATED RINGER'S 1000 ML INJ 1,000 ML IV SCH ×2 (10:36→23:06)
[2017-07-16] MEDS: ACETAMINOPHEN/HYDROcodone 325 MG/10 MG TAB PO PRN ×3 (16:58→23:49)
[2017-07-17] VITALS: BP 112/69; PULSE 83; RESP 16; TEMP 97.7; O2SAT 100
[2017-07-17] MEDS: ACETAMINOPHEN/HYDROcodone 325 MG/10 MG TAB PO PRN ×5 (02:39→16:22)
[2017-07-17 04:00] VITALS: BP 116/66; PULSE 69; RESP 16; TEMP 97.6; O2SAT 99
[2017-07-17 08:00] VITALS: BP 121/72; PULSE 89; RESP 16; TEMP 96.1; O2SAT 100
--- NOTE | 2017-07-17 08:16 | PD.ORT.PN ---
Subjective Subjective Remarks Progressing well with physical therapy Objective Vitals Vital Signs Date Time Temp Pulse Resp B/P (MAP) Pulse Ox O2 Delivery O2 Flow Rate FiO2 07/17/17 04:00 97.6 69 16 116/66 (83) 99 07/17/17 00:00 97.7 83 16 112/69 (83) 100 07/16/17 21:02 99 07/16/17 20:00 98.7 79 18 122/78 (93) 99 07/16/17 16:00 97.5 71 18 119/78 (92) 99 07/16/17 12:00 96.7 73 18 105/68 (80) 100 I/O 07/16/17 07/16/17 07/16/17 07/17/17 07/17/17 07/17/17 07:00 15:00 23:00 07:00 15:00 23:00 Intake Total 2177 ml 800 ml 800 ml 200 ml Output Total 320 ml Balance 1857 ml 800 ml 800 ml 200 ml Intake Oral 380 ml 800 ml 800 ml 200 ml IV Total 1797 ml Output Urine Total 320 ml # Voids 3 4 2 # Bowel Movements 0 1 Result Diagram: 07/15/17 0905 Imaging Last 24 hours Impressions Hip and Pelvis X-Ray 07/14/17 0836 Signed Impressions: Service Date/Time: Friday, July 14, 2017 09:16 - CONCLUSION: 1. Status post right hip arthroplasty in anatomic alignment without acute fracture. Osvaldo Reilly MD Objective Remarks RLE: dressing clean and dry. intact. NVI Assessment & Plan Assessment and Plan 1) right Anterior JEISON - POD 3 -WBAT -work with therapy -Maintain dressing for 5 days then discontinue dressing preserving surgical tape over incision and dressed with Primapore -no help at home so plan for DC to SNF -cleared for DC to SNf when bed is available -scripts on chart -f/u with Livia or [facility] in 2 weeks Adalid Light Jr. Jul 17, 2017 08:16
[2017-07-17] MEDS: ASPIRIN 81 MG CHEW TAB CHEW SCH (09:12)
[2017-07-17] MEDS: LISINOPRIL 10 MG TAB PO SCH (09:12)
[2017-07-17] MEDS: CELECOXIB 200 MG CAP PO SCH (09:13)
[2017-07-17] MEDS: DOCUSATE SODIUM 100 MG CAP PO SCH (09:13)
[2017-07-17] MEDS: HYDROCHLOROTHIAZIDE 25 MG TAB PO SCH (09:13)
[2017-07-17 09:54] VITALS: O2SAT 100
[2017-07-17] MEDS: LACTATED RINGER'S 1000 ML INJ 1,000 ML IV SCH (11:36)
[2017-07-17 12:00] VITALS: BP 115/65; PULSE 76; RESP 16; TEMP 96.8; O2SAT 93
== END 2017-07-17 18:43 | DRG 470 ==
LOC: HSDI 07-14 05:25 → N06B 07-14 12:22
PROVIDERS: ADMIT Orthopaedic Surgery Orthopaedic Trauma; ATTEND Orthopaedic Surgery Orthopaedic Trauma
PROC: 0SR904A Replacement of Right Hip Joint with Ceramic on Polyethylene Synthetic Substitute, Uncemented, Open Approach (ICD-10-PCS; principal; 2017-07-14 06:35)
DX: M16.11 Unilateral primary osteoarthritis, right hip (principal); Z96.642 Presence of left artificial hip joint; I10 Essential (primary) hypertension; F32.9 Major depressive disorder, single episode, unspecified; Z87.891 Personal history of nicotine dependence
CPT/HCPCS: 73501; 73502; 76000; 85014; 85018; 86850; 86900; 86901; C1776; C9290; J0131; J0690; J1100; J1170; J1580; J1885; J2270; J2370; J2405; J2710; J3010; J3370; J7050; J7120